=== PATIENT | male | born 1985 | race Caucasian/White ===

== ENCOUNTER 2020-10-22 08:35 | Day surgery (SDC) | payer OTHER ==
[~2020-10-22 08:35] MED LIST: ESCITALOPRAM OX20 MG PO; SYNTHROID100 MCG PO; VITAMIN D325 MC2 PO
--- NOTE | 2020-10-22 10:08 | NUR ---
10/22/20 1008 Melony Baker 1004 PATIENT ARRIVES TO PACU SLEEPING, DOES NOT WAKE UP WITH VERBAL STIMULI. RESP EVEN AND UNLABORED, ROOM AIR SATS >97%.
--- NOTE | 2020-10-22 10:59 | NUR ---
PT RETURNED TO ROOM 9 DISCHARGED AND WANTING TO SLEEP. CALL LIGHT GIVEN. WATER AT BEDSIDE.
--- NOTE | 2020-10-23 07:26 | OR ---
[facility] [address] [place], [place] [address] Signed DATE OF OPERATION: 10/22/2020 SURGEON: Roderick Morillo MD PREOPERATIVE DIAGNOSES: 1. Intermittent rectal bleeding. 2. Mother with colonic polyps. 3. Multiple maternal relatives with colonic polyps. 4. Unremarkable colonoscopy in 2013. POSTOPERATIVE DIAGNOSES: 1. Small external anal skin tag x1. 2. Moderate internal hemorrhoids. 3. 6 mm polyp, hepatic flexure. PROCEDURE: Colonoscopy with snare polypectomy and hot biopsy. FINDINGS: Anthony indeed has internal hemorrhoid columns. One has white discoloration visible. I could also feel some irritation in the posterior midline, but no obvious anal fissure. More than likely this is the source of his intermittent rectal bleeding. INDICATIONS: Anthony is a 35-year-old gentleman asked to see me for intermittent rectal bleeding. He talked about his rectal bleeding back into his 20s. He went to see Dr. Steven Saba in [place], [place]. He had a colonoscopy in 2013. He said there was mild edema in the rectum, but the biopsies came back negative. There is mention of a small external hemorrhoid. Anthony did not tolerate digital rectal exam nor anoscopy back in 2013 in the office setting. He has tried various anal creams without success. He said he is not constipated. He does not use a fiber product. 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 Therefore, he sits at the office most of the day. He gives no family history of inflammatory bowel disease. He said his mother and a few of his maternal relatives have all had colonic polyps removed. He is not sure, but his maternal grandmother may have had colon cancer or ovarian cancer. He came to the office with respect to the above. Once again, he said he could not tolerate a digital rectal exam nor anoscopy in the office. I had given more booklet on hemorrhoids and anal pathology along with colonoscopy. We had gone through it very carefully. I explained to him in the end, he may need an exam under anesthesia. But prior to that, he should have a repeat colonoscopy. He understands colonoscopy quite well. He understands there is risk Electronically Signed By: RODERICK MORILLO MD 10/23/20 0726 PATIENT NAME: ANTHONY RAWLS OPERATIVE REPORT DATE OF : 87 REPORT #: [id number] PHYSICIAN: RODERICK MORILLO MD PCP: ADELA HERNANDEZ MD REPORT IS CONFIDENTIAL AND NOT TO BE RELEASED WITHOUT AUTHORIZATION [facility] [address], [place] [address] Signed including, but not limited to gas bloating, crampy abdominal pain, bleeding, perforation requiring surgery, and missed diagnosis. He also understands the need for IV conscious sedation. He did have monitored anesthesia care back in 2013. However on this occasion, we thought Versed and fentanyl would suffice. He had expressed understanding and wished to proceed. PROCEDURE NOTE: Anthony was taken into our endoscopy suite and placed in the left lateral decubitus position. He was given a total of 11 mg of Versed and 200 mcg of fentanyl to cover the case. Even then, we could not get the scope quite into the cecum itself. There was too much pressure and he was to wait for that. Consequently, he could definitely consider monitored anesthesia care in the future. A digital rectal exam had been performed and he does have just a small single external anal skin tag. His perianal hygiene appears to be excellent. We pulled on the anal skin, I really could not find a fissure in the posterior midline or the anterior midline. No fistula tracts that I could see or feel. On digital rectal exam, he has very good anal sphincter tone even after sedation. I could feel some irritation or roughness to the mucosa in the posterior midline somewhat up high and internally. I wonder if that does not correlate to the findings with the colonoscope. After this, the adult colonoscope had been introduced and advanced around into the mid right colon. Unfortunately, the scope started to buckle and he could not tolerate advancement of scope any more. We did not have an anesthesia provider today to help with propofol infusion. After this, the scope was then slowly withdrawn. We found a polyp in his hepatic flexure and it was removed with the combination of hot biopsy forceps and the snare. The rest of the colon was completely unremarkable. Specifically, no inflammatory changes whatsoever in the colon or rectum. Upon retroflexion of scope in the rectum, he does have moderate internal hemorrhoid columns. One hemorrhoid column has white irritated area. I suspect this is what bleeds intermittently. He will need an exam under anesthesia area since he cannot tolerate a digital rectal exam or anoscopy in the office. After this, the gas was suctioned out and the colonoscope removed. Anthony tolerated the procedure quite well. RECOMMENDATIONS: I will see Anthony back in my office in 7 to 14 days to review his results. Particularly, we will review the internal hemorrhoids. We will also review the concept of exam under anesthesia and possible hemorrhoidectomy. Roderick Morillo MD Electronically Signed By: RODERICK MORILLO MD 10/23/20 0726 PATIENT NAME: ANTHONY RAWLS OPERATIVE REPORT DATE OF : [birth year] REPORT #: [id number] PHYSICIAN: RODERICK MORILLO MD PCP: ADELA HERNANDEZ MD REPORT IS CONFIDENTIAL AND NOT TO BE RELEASED WITHOUT AUTHORIZATION [facility] [address] [place], [place] [address] Signed ALB/MODL /[id number] cc: MD Roderick Estrada MD Copies: ADELA HERNANDEZ MD, ANDREW L MD ~ Electronically Signed By: RODERICK MORILLO MD 10/23/20 0726 PATIENT NAME: ANTHONY RAWLS OPERATIVE REPORT DATE OF : [birth year] REPORT #: [id number] PHYSICIAN: RODERICK MORILLO MD PCP: ADELA HERNANDEZ MD REPORT IS CONFIDENTIAL AND NOT TO BE RELEASED WITHOUT AUTHORIZATION
--- NOTE | 2020-10-27 16:35 | PATH ---
[facility] [address] [place], [place] [address] Signed SPECIMEN(S): A HEPATIC FLEXURE POLYP SPECIMEN SOURCE: A. HEPATIC FLEXURE POLYP CLINICAL HISTORY: Colonoscopy. Family history of colon polyps; rectal bleeding. MICROSCOPIC DESCRIPTION: Histologic sections of all submitted blocks are examined by light microscopy. These findings, together with the gross examination, support the pathologic diagnosis. Focal atypical stromal cells are present near the denuded/eroded surface of the cauterized tissue fragments. A pancytokeratin immunohistochemical stain (with appropriately staining controls) is performed and is negative in those stromal cells. These are interpreted as benign, reactive stromal cells. FINAL PATHOLOGIC DIAGNOSIS: Colon, hepatic flexure, polyp, polypectomy: - Fragments of cauterized colonic mucosa with features of hyperplastic and inflammatory polyp. - Negative for dysplasia or malignancy. NAL:cml:C2NR GROSS DESCRIPTION: The specimen, labeled "RK, 1," and designated on the requisition "hepatic flexure polypectomy," is received in formalin and consists of five fragments of pink-roman tissue (0.2-0.4 cm in greatest dimension). The specimen is submitted entirely in cassette (A1). AC (under the direct supervision of a pathologist The Gross Description was prepared using a voice recognition system. The report was reviewed for accuracy; however, sound-alike word errors, addition and/or deletions may occur. If there is any question about this report, please contact Client Services. ADDITIONAL NOTES: Immunohistochemical and/or in situ hybridization studies were performed on this case with the appropriate positive controls that react as expected. This test was developed and its performance characteristics determined by [facility]. It has not been cleared or approved by the U.S. Food and Drug Administration. The FDA has determined that PATIENT NAME: ANTHONY RAWLS PATHOLOGY DATE OF : [birth year] REPORT #: [id number] PHYSICIAN: MIKY PATHOLOGY PCP: ADELA HERNANDEZ MD REPORT IS CONFIDENTIAL AND NOT TO BE RELEASED WITHOUT AUTHORIZATION [facility] [address] [place], [place] [address] Signed such clearance or approval is not necessary. This test is used for clinical purposes. It should not be regarded as investigational or for research. [facility] is certified under the Clinical Laboratory Improvement Amendments of 1988 (CLIA) as qualified to perform high complexity clinical laboratory testing. This assay has not been validated for specimens that have been decalcified. PERFORMING LABORATORY: The technical component was performed by [facility], [address] [place] [id number] (Food And Beverage Coordinator: Meredith Shankar MD; CLIA# [id number]). [facility], [address] [address] (CLIA# [id number]). Diagnostician: Yesika Banda MD Pathologist Electronically Signed 10/27/2020 Copies: ~ PATIENT NAME: ANTHONY RAWLS PATHOLOGY DATE OF : [birth year] REPORT #: [id number] PHYSICIAN: MIKY MARTI PCP: ADELA HERNANDEZ MD REPORT IS CONFIDENTIAL AND NOT TO BE RELEASED WITHOUT AUTHORIZATION
== END 2020-10-22 12:00 | disposition home or self-care (01) ==
LOC: OPS 08:35 → DS 08:35 → OPS 12:00 → DS 10-29 06:45
PROVIDERS: ATTEND Colon & Rectal Surgery
PROC: 0DBL8ZX Excision of Transverse Colon, Via Natural or Artificial Opening Endoscopic, Diagnostic (ICD-10-PCS; principal; 2020-10-22 08:55)
DX: K64.8 Other hemorrhoids (principal); K64.4 Residual hemorrhoidal skin tags; K51.40 Inflammatory polyps of colon without complications; F90.9 Attention-deficit hyperactivity disorder, unspecified type; I10 Essential (primary) hypertension; Z83.71 Family history of colonic polyps; Z87.891 Personal history of nicotine dependence; Z88.2 Allergy status to sulfonamides
CPT/HCPCS: 99153; G0500; J2250; J3010; J7121

== ENCOUNTER 2021-01-01 07:30 | Day surgery (SDC) | payer OTHER ==
[~2021-01-01] VITALS: Ht 185.4 cm; Wt 98.0 kg
--- NOTE | 2021-01-01 09:58 | NUR ---
01/01/21 0958 Ruddy Coon RESPONDS TO VOICE ON ENTRY TO PACU. DENIES PAIN OR NAUSEA. REORIENTED TO TIME AND SITUATION. ICE BAG TO DRESSING PER ORDER.
--- NOTE | 2021-01-01 15:30 | OR ---
[facility] [address] [place], [place] [address] Signed DATE OF OPERATION: 01/01/2021 SURGEON: Roderick Morillo MD PREOPERATIVE DIAGNOSES: 1. Internal hemorrhoids with bleeding. 2. External anal skin tag x1. POSTOPERATIVE DIAGNOSES: 1. Internal and external anal skin tag, posterior midline. 2. Exterior anal skin tag x1, posterior midline. PROCEDURES: Internal and external hemorrhoidectomy with excision of external anal skin tag, posterior midline. ESTIMATED BLOOD LOSS: None. INDICATIONS: Anthony is a 35-year-old gentleman who had come to me for a colonoscopy. He has had trouble with intermittent rectal bleeding. He told me his mother had colonic polyps. He also has multiple maternal relatives, who had colonic polyps besides his mother. He underwent colonoscopy in 2013 while living in [place], [place]. That was negative. There was mention of small external hemorrhoids. Anthony has been unable to tolerate digital rectal exam or anoscopy in the office both in 2013 as well as currently. He has been through all manners of conservative treatment without much success. 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 He said there is no inflammatory bowel disease in the family. He continues to have the bleeding. We took him for a colonoscopy and found a single external anal skin tag posterior along with the inflammatory polyp at hepatic flexure. He did have moderate internal hemorrhoids. There was one in particular that was irritated, beefy in nature with some white discoloration represents his source of bleeding. He is aware that white discoloration around the anus could represent a cancer. He was quite concerned and wanted to have that removed completely. We therefore discussed the need for exam under anesthesia with hemorrhoidectomy. I gave him our hernia booklet on hemorrhoids and we had gone through a page by page. He understands the surgery quite well. There is risk of surgery including, but not limited to bleeding, infection, scarring, change in contour of the skin, anal stenosis, recurrent hemorrhoids, and possible need for additional surgeries based on pathology results. He had expressed understanding and Electronically Signed By: RODERICK MORILLO MD 01/01/21 1530 PATIENT NAME: ANTHONY RAWLS OPERATIVE REPORT DATE OF : [birth year] REPORT #: [id number] PHYSICIAN: RODERICK MORILLO MD PCP: POOJA ROBLEDO MD REPORT IS CONFIDENTIAL AND NOT TO BE RELEASED WITHOUT AUTHORIZATION [facility] [address] [place], [place] [address] Signed wished to proceed. PROCEDURE NOTE: I had met with Anthony in our preop area. He underwent placement of a saddle block by our nurse fitter/welder. After that, he was taken to the operating room and placed in the prone lon-knife position with appropriate padding and monitoring. He had been placed under monitored anesthesia care by our nurse fitter/welder. He was given preoperative antibiotics and later given subcutaneous heparin after the saddle block. He was then prepped and draped in the usual sterile fashion. We examined the full circumference of the anal canal with the help of the half-mendoza retractor. His internal hemorrhoids were little more prominent on the right than on the left. Very little on the left. He has the small external anal skin tag in the posterior midline. Then below that was his external hemorrhoid with a small internal component. The internal component was quite beefy with a white discoloration. We went ahead and took the 2-0 chromic and placed a stitch at the top of that internal hemorrhoid columns. The internal and external hemorrhoid components were excised along with that skin tagged with the help of the cautery. Direct visualization was undertaken of the underlying sphincter muscles. The internal component had been closed with a running locked 2-0 chromic suture. The external component was left open to heal in secondarily. Local anesthetic was then injected around the anal canal for a field block. A dry ABD was applied along with underwear. Anthony was then rotated into the supine position onto his hospital bed and taken into recovery room in stable condition. He tolerated the procedure quite well. Roderick Morillo MD [facility] /[id number] cc: MD Roderick Cordon MD Copies: RODERICK MORILLO MD Electronically Signed By: RODERICK MORILLO MD 01/01/21 1530 PATIENT NAME: ANTHONY RAWLS OPERATIVE REPORT DATE OF : [birth year] REPORT #: [id number] PHYSICIAN: RODERICK MORILLO MD PCP: POOJA ROBLEDO MD REPORT IS CONFIDENTIAL AND NOT TO BE RELEASED WITHOUT AUTHORIZATION [address] [address] Signed ~ Electronically Signed By: RODERICK MORILLO MD 01/01/21 1530 PATIENT NAME: ANTHONY RAWLS OPERATIVE REPORT DATE OF : [birth year] REPORT #: [id number] PHYSICIAN: RODERICK MORILLO MD PCP: POOJA ROBLEDO MD REPORT IS CONFIDENTIAL AND NOT TO BE RELEASED WITHOUT AUTHORIZATION
--- NOTE | 2021-01-04 14:17 | PATH ---
[facility] [address] [place], [place] [address] Signed SPECIMEN(S): A INTERNAL, EXTERNAL HEMORRHOID SPECIMEN SOURCE: A. INTERNAL, EXTERNAL HEMORRHOID CLINICAL HISTORY: Hemorrhoidectomy. Rectal bleeding. FINAL PATHOLOGIC DIAGNOSIS: Hemorrhoid, internal, external, excision: - Mixed internal/external hemorrhoid. NAL:cml:C2NR MICROSCOPIC EXAMINATION: Histologic sections of all submitted blocks are examined by light microscopy. These findings, together with the gross examination, support the pathologic diagnosis. GROSS DESCRIPTION: The specimen, labeled "RK, A.," and designated on the requisition "internal, external hemorrhoid," is received in formalin and consists of a roman-violaceous mucosal tissue fragment measuring 2.2 x 1.8 x 1.0 cm. Cut surface reveals dilated vessels with clot material and technical support representative sections are submitted in cassette (A1). AT (under the direct supervision of a pathologist) The Gross Description was prepared using a voice recognition system. The report was reviewed for accuracy; however, sound-alike word errors, addition and/or deletions may occur. If there is any question about this report, please contact Client Services. PERFORMING LABORATORY: The technical component was performed by [facility], [address] [place] [id number] (Cushion Installer: Meredith Shankar MD; CLIA# [id number]). [facility], [address] [address] (CLIA# [id number]). Diagnostician: Yesika Banda MD Pathologist Electronically Signed 01/04/2021 PATIENT NAME: ANTHONY RAWLS PATHOLOGY DATE OF : [birth year] REPORT #: [id number] PHYSICIAN: MIKY PATHOLOGY PCP: POOJA ROBLEDO MD REPORT IS CONFIDENTIAL AND NOT TO BE RELEASED WITHOUT AUTHORIZATION [address] [address] Signed Copies: ~ PATIENT NAME: ANTHONY RAWLS PATHOLOGY DATE OF : [birth year] REPORT #: [id number] PHYSICIAN: MIKY PATHOLOGY PCP: POOJA ROBLEDO MD REPORT IS CONFIDENTIAL AND NOT TO BE RELEASED WITHOUT AUTHORIZATION
== END 2021-01-01 10:45 | disposition home or self-care (01) ==
LOC: DS 07:30
PROVIDERS: ATTEND Colon & Rectal Surgery
PROC: 0DBQXZZ Excision of Anus, External Approach (ICD-10-PCS; 2021-01-01)
PROC: 06BY0ZC Excision of Hemorrhoidal Plexus, Open Approach (ICD-10-PCS; principal; 2021-01-01 08:30)
DX: K64.8 Other hemorrhoids (principal); K64.4 Residual hemorrhoidal skin tags; K62.5 Hemorrhage of anus and rectum; K63.5 Polyp of colon; Z87.891 Personal history of nicotine dependence; Z88.1 Allergy status to other antibiotic agents
CPT/HCPCS: 00902; J0690; J1644; J1885; J2001; J2250; J2405; J2704; J7121

== ENCOUNTER 2022-01-17 09:49 | Emergency (ER) | payer OTHER ==
[~2022-01-17] VITALS: Ht 185.4 cm; Wt 92.0 kg
[2022-01-17] MEDS ORDERED: HYDROCHLOROTHIA25 MG PO (10:03)
--- NOTE | 2022-01-17 20:11 | EKG ---
[facility] [address] [facility] [place], [place] [address] Signed Normal sinus rhythm with sinus arrhythmia Normal ECG No previous ECGs available Confirmed by HAYDEE FIELDS MD ([id number]) on 01/17/2022 8:11:03 PM Electronically Signed By: HAYDEE FIELDS MD 01/17/222010 PATIENT NAME: ANTHONY RAWLS Electrocardiogram DATE OF : 87 PHYSICIAN: HAYDEE FIELDS MD REPORT #: [id number] REPORT IS CONFIDENTIAL AND NOT TO BE RELEASED WITHOUT AUTHORIZATION
== END 2022-01-17 11:31 | disposition home or self-care (01) ==
LOC: ED 09:49
DX: K21.9 Gastro-esophageal reflux disease without esophagitis (principal); Z88.2 Allergy status to sulfonamides; Z79.899 Other long term (current) drug therapy
CPT/HCPCS: 36415; 71045; 80053; 83735; 84484; 85025; 85379; 93005; 93010; 99285-25; A9270